=== PATIENT | male | born 1985 | race African-American/Black ===

== ENCOUNTER 2017-09-17 21:15 | Emergency (ER) | payer BC ==
[2017-09-17] MEDS ORDERED: Sodium Chloride 0.9% 1,000 ML IV ONE (21:31)
--- NOTE | 2017-09-17 21:32 | EDM.PDOC ---
ED HPI GENERAL MEDICAL PROBLEM - General Chief Complaint: Syncope Stated Complaint: passed out Time Seen by Provider: 09/17/17 21:15 Source of Information: Reports: Patient History Limitations: Reports: No Limitations - History of Present Illness INITIAL COMMENTS - FREE TEXT/NARRATIVE: HISTORY AND PHYSICAL: History of present illness: [Patient is brought to the emergency room today by his with complaints of a syncopal episode. He states that he had to urinate very badly, and was standing at the toilet. Upon emptying his bladder he fell floor from a standing position. He awoke immediately, and admits hitting his head on the floor. He denies any head pain. He has not had any prior episodes of passing out. He states that he is otherwise healthy and does not take any medications regularly. He has not had the recent illness or infection. No Chest pain shortness of breath or difficulty breathing. He did not lose control of his bowel or bladder when he fell.] Review of systems: As per history of present illness and below otherwise all systems reviewed and negative. Past medical history: As per history of present illness and as reviewed below otherwise noncontributory. Surgical history: As per history of present illness and as reviewed below otherwise noncontributory. Social history: No reported history of drug or alcohol abuse. Family history: As per history of present illness and as reviewed below otherwise noncontributory. Physical exam: HEENT: Atraumatic, normocephalic. PERRLA. Head is nontender with palpation. Oral mucous membranes are pink and moist. Lungs: Clear to auscultation, breath sounds equal bilaterally. Heart: S1S2, regular, negative for clicks, rubs, or JVD. Abdomen: Soft, nondistended, nontender. Pelvis: Stable nontender. Genitourinary: Deferred. Rectal: Deferred. Extremities: Atraumatic, negative for cords or calf pain. swelling or cyanosis to feet or lower legs. Neurovascular unremarkable. Neuro: Awake, alert, oriented. Cranial nerves II through XII unremarkable. Cerebellum unremarkable. Motor and sensory unremarkable throughout. Exam nonfocal. Diagnostics: [EKG, CMP, CBC, UA] Therapeutics: [Normal saline] Impression: [Post micturition vagal episode] Plan: [Patient's labs are completely unremarkable. Blood pressure is elevated during his ER stay. Encouraged him to follow-up with PCP next week for recheck on pressure. Patient and verbalized understanding of today's discussion.] Definitive disposition and diagnosis as appropriate pending reevaluation and review of above. - Related Data Allergies Allergy/AdvReac Type Severity Reaction Status Date / Time No Known Allergies Allergy Verified 09/17/17 21:26 Home Meds: Home Meds . [No Known Home Meds] 09/17/17 [History] Past Medical History - Past Health History Medical/Surgical History: Denies Medical/Surgical History Social & Family History - Family History Family Medical History: Noncontributory - Tobacco Use Smoking Status *Q: Never Smoker - Recreational Drug Use Recreational Drug Use: No ED ROS GENERAL - Review of Systems Review Of Systems: ROS reveals no pertinent complaints other than HPI. - Physical Exam Exam: See Below Course - Vital Signs Last Recorded V/S: Last Vital Signs Temp 98.6 F 09/17/17 21:19 Pulse 89 09/17/17 21:19 Resp 18 09/17/17 21:19 BP 165/93 H 09/17/17 21:19 Pulse Ox 95 09/17/17 21:19 - Orders/Labs/Meds Orders: Active Orders 24 hr Category Date Time Status EKG Documentation Completion [RC] STAT Care 09/17/17 21:21 Active UA W/MICROSCOPIC [URIN] Stat Lab 09/17/17 21:22 Ordered Sodium Chloride 0.9% [Normal Saline] 1,000 ml Med 09/17/17 21:31 Active IV STAT Medication Orders Sodium Chloride (Normal Saline) 1,000 mls @ 999 mls/hr IV STAT ONE Stop: 09/17/17 22:31 Last Admin: 09/17/17 21:57 Dose: 999 mls/hr Labs: Laboratory Tests 09/17/17 09/17/17 Range/Units 21:17 21:17 WBC 6.68 (4.0-11.0) K/uL RBC 5.51 (4.50-5.90) M/uL Hgb 15.0 (13.0-17.0) g/dL Hct 44.8 (38.0-50.0) % MCV 81.3 (80.0-98.0) fL MCH 27.2 (27.0-32.0) pg MCHC 33.5 (31.0-37.0) g/dL RDW Std Deviation 41.0 (28.0-62.0) fl RDW Coeff of Gabriel 14 (11.0-15.0) % Plt Count 150 (150-400) K/uL MPV 10.90 (7.40-12.00) fL Neut % (Auto) 39.5 L (48.0-80.0) % Lymph % (Auto) 51.5 H (16.0-40.0) % Thayer % (Auto) 7.0 (0.0-15.0) % Eos % (Auto) 1.6 (0.0-7.0) % Baso % (Auto) 0.4 (0.0-1.5) % Neut # (Auto) 2.6 (1.4-5.7) K/uL Lymph # (Auto) 3.4 H (0.6-2.4) K/uL Thayer # (Auto) 0.5 (0.0-0.8) K/uL Eos # (Auto) 0.1 (0.0-0.7) K/uL Baso # (Auto) 0.0 (0.0-0.1) K/uL Nucleated RBC % 0.0 /100WBC Nucleated RBCs # 0 K/uL Sodium 142 (136-148) mmol/L Potassium 3.8 (3.5-5.1) mmol/L Chloride 106 (98-107) mmol/L Carbon Dioxide 26.6 (21.0-32.0) mmol/L BUN 13 (7.0-18.0) mg/dL Creatinine 1.2 (0.8-1.3) mg/dL Est Cr Clr Drug Dosing 96.10 mL/min Estimated GFR (MDRD) > 60.0 ml/min Glucose 101 (74-106) mg/dL Calcium 9.0 (8.5-10.1) mg/dL Total Bilirubin 0.3 (0.2-1.0) mg/dL AST 33 (15-37) IU/L ALT 40 (14-63) IU/L Alkaline Phosphatase 48 (46-116) U/L Total Protein 7.5 (6.4-8.2) g/dL Albumin 4.0 (3.4-5.0) g/dL Globulin 3.5 (2.0-3.5) g/dL Albumin/Globulin Ratio 1.1 L (1.3-2.8) Meds: Medications Generic Name Dose Route Start Last Admin Trade Name Oliver PRN Reason Stop Dose Admin Sodium Chloride 1,000 mls @ 999 mls/hr 09/17/17 21:31 09/17/17 21:57 Normal Saline IV 09/17/17 22:31 999 mls/hr STAT ONE Administration Departure - Departure Time of Disposition: 22:15 Disposition: Home, Self-Care 01 Condition: Good Clinical Impression: Syncope - Discharge Information Referrals: PCP,Unknown [Primary Care Provider] - Forms: ED Department Discharge Additional Instructions: The following information is given to patients seen in the emergency department who are being discharged to home. This information is to outline your options for follow-up care. We provide all patients seen in our emergency department with a follow-up referral. The need for follow-up, as well as the timing and circumstances, are variable depending upon the specifics of your emergency department visit. If you don't have a primary care physician on staff, we will provide you with a referral. We always advise you to contact your personal physician following an emergency department visit to inform them of the circumstance of the visit and for follow-up with them and/or the need for any referrals to a consulting specialist. The emergency department will also refer you to a specialist when appropriate. This referral assures that you have the opportunity for follow-up care with a specialist. All of these measure are taken in an effort to provide you with optimal care, which includes your follow-up. Under all circumstances we always encourage you to contact your private physician who remains a resource for coordinating your care. When calling for follow-up care, please make the office aware that this follow-up is from your recent emergency room visit. If for any reason you are refused follow-up, please contact the [facility] emergency department at and asked to speak to the emergency department charge nurse. [facility] [address] [place] [id number] Follow-up with your local primary care provider at the clinic listed above in 48 -72 hours. Push fluids, get plenty of rest. Return to ER as needed as discussed. - My Orders Last 24 Hours: My Active Orders 09/17/17 21:21 EKG Documentation Completion [RC] STAT 09/17/17 21:22 UA W/MICROSCOPIC [URIN] Stat 09/17/17 21:31 Sodium Chloride 0.9% [Normal Saline] 1,000 ml IV STAT - Assessment/Plan Last 24 Hours: My Active Orders 09/17/17 21:21 EKG Documentation Completion [RC] STAT 09/17/17 21:22 UA W/MICROSCOPIC [URIN] Stat 09/17/17 21:31 Sodium Chloride 0.9% [Normal Saline] 1,000 ml IV STAT
[2017-09-17 21:52] LABS: CHLORIDE,CL 106 mmol/L (98-107); SODIUM,NA 142 mmol/L (136-148)
== END 2017-09-17 22:23 | disposition home or self-care (01) ==
LOC: MW.ED 21:15
DX: R55 Syncope and collapse (principal); R39.198 Other difficulties with micturition
CPT/HCPCS: 36415; 80053; 81001; 85025; 93005; 96360; 99284; J7040; 99283